=== PATIENT | male | born 1990 | race Caucasian/White ===

== ENCOUNTER 2022-10-29 16:11 | Emergency (ER) | payer OTHER, SELFPAY ==
[2022-10-29 16:36] VITALS: BP 127/67; PULSE 70; RESP 16; TEMP 36.1; O2SAT 99
--- NOTE | 2022-10-29 16:49 | ED.URI ---
HPI - URI/Sore Throat General Chief Complaint: Upper Respiratory Infection Stated Complaint: throat discomfort Time Seen by Provider: 10/29/22 17:00 History of Present Illness HPI Narrative: 32-year-old male presented for complaint of feeling run down; onset today. He is concerned because his and children have tested positive for strep and are currently on antibiotics. He currently denies any associated symptoms. He has not needed any medication for symptoms. Related Data Allergies Allergy/AdvReac Type Severity Reaction Status Date / Time No Known Allergies Allergy Verified 10/29/22 16:52 Review of Systems Review of Systems: CONSTITUTIONAL: Denies body aches, fever, chills, or sweats. EYES: Denies visual changes, redness, or discharge. ENT: Denies rhinorrhea, congestion, or otalgia. CARDIOVASCULAR: Denies chest pain, palpitations, or edema. RESPIRATORY: Denies dyspnea. GASTROINTESTINAL: Denies abdominal pain, nausea, vomiting, or diarrhea. SKIN: Denies rash, itching, or wounds. MUSCULOSKELETAL: Denies back pain, joint pain, or myalgia. NEUROLOGIC: Denies headache COUNTS INCLUDE 234 BEDS AT [facility] Past Medical History Medical History (Updated 10/29/22 @ 17:09 by Verónica Guzmán, BOOTH MANAGER) No pertinent past medical history Exam Narrative: GENERAL: Ill-appearing, no acute distress. EYES: conjunctivae clear ENT: Mucous membranes moist. TM pearly ibarra with normal light reflex bilaterally; no tragal tenderness. Oropharynx erythematous without lesions or exudate. No drooling, no hoarseness, no trismus, uvula midline. NECK: Supple. No lymphadenopathy CHEST: Clear to auscultation, breath sounds equal. No respiratory distress, speaks in full sentences. HEART: Regular rate and rhythm. No murmur heard. SKIN: Warm, dry, no rash. NEURO: Alert and oriented x3. Course Course Emergency Course: Patient is aware of diagnosis, understands and agrees to treatment plan. Anticipatory guidance given. Patient agrees to follow-up as directed and is aware of reasons to seek care at the emergency department. Portions of this record may have been created with voice recognition software Level of Care: Express Care Visit Vital Signs Vital signs: Vital Signs Temperature 97.0 F L 10/29/22 16:36 Pulse Rate 70 10/29/22 16:36 Respiratory Rate 16 10/29/22 16:36 Blood Pressure 127/67 10/29/22 16:36 Pulse Oximetry 99 10/29/22 16:36 Oxygen Delivery Room Air 10/29/22 16:36 Temperature 97.0 F L 10/29/22 16:36 Pulse Rate 70 10/29/22 16:36 Respiratory Rate 16 10/29/22 16:36 Blood Pressure 127/67 10/29/22 16:36 Pulse Oximetry 99 10/29/22 16:36 Oxygen Delivery Room Air 10/29/22 16:36 MDM - URI/Sore Throat MDM Narrative Medical decision making narrative: strep result reviewed with pt. Based on known exposure, and he is unable to f/u with PCM in a timely manner, Rx abx will be sent should he develop worsening symptoms prior to the culture results. Advise supportive treatments. Patient is appropriate for outpatient treatment and follow-up. Differential Diagnosis Differential diagnosis: Likely upper respiratory infection, viral infection and pharyngitis Discharge Plan Discharge Clinical Impression: Pharyngitis Patient Disposition: Home, Self-Care Condition: Stable Instructions: Antibiotic Form Additional Instructions: Strep test was negative. It will be sent for culture. - Take the antibiotic as directed if your symptoms worsen before the culture results. Fever and sore throat typically resolve within one to three days. Most patients can return to work after 12 to 24 hours of antibiotic therapy, provided you are fever free and otherwise well. -Eat and drink things that are easy to swallow, like soft foods, cool liquids, tea with honey, or popsicles . -Salt water gargles and/or may use topical anesthetic ( Chloraseptic spray) or lozenges to relieve dryness or throat pain -Alternate Tylenol a
== END 2022-10-29 17:12 | disposition home or self-care (01) ==
PROVIDERS: Emergency Provider Nurse Practitioner Family
DX: J02.9 Acute pharyngitis, unspecified (principal)
CPT/HCPCS: 87081; 87880; 99203; G0463